=== PATIENT | female | born 1990 | race Two or more races ===

== ENCOUNTER 2018-08-12 23:56 | Emergency (ER) | payer MEDICAID ==
[~2018-08-12] VITALS: Ht 170.2 cm; Wt 113.4 kg
[2018-08-13 00:19] VITALS: BP 153/91
[2018-08-13 03:09] LABS: Urine Bacteria NONE SEEN /hpf (None Seen); Urine Blood Negative /uL (Negative); Urine Mucus FEW (None Seen); Urine Specific Gravity 1.038 (1.001-1.035); Urine WBC 1 /hpf (0 - 5)
== END 2018-08-13 04:01 | disposition left against medical advice (07) ==
LOC: ER 08-13 00:01
DX: M54.5 Low back pain (principal); Z87.440 Personal history of urinary (tract) infections; Z53.21 Procedure and treatment not carried out due to patient leaving prior to being seen by health care provider
CPT/HCPCS: 81001